=== PATIENT | female | born 1995 | race Caucasian/White ===

== ENCOUNTER 2023-01-04 09:05 | Emergency (ER) | payer BC, SELFPAY ==
--- NOTE | ~2023-01-04 | XR_ITS ---
EXAMINATION: XR hand RT min 3V DATE: 01/04/2023 09:29 INDICATION: Right hand injury and swelling. TECHNIQUE: 3 views of right hand were obtained. COMPARISON: None. FINDINGS: There is a comminuted fracture of neck of fifth metacarpal. The main distal fracture fragme nt demonstrates 40 degrees radiopalmar angulation. Joint spaces are normal. IMPRESSION: 1. Comminuted fracture of neck of fifth metacarpal. Reviewed, dictated and finalized at location A.
[2023-01-04 09:20] VITALS: BP 111/58; PULSE 75; RESP 16; TEMP 36.6; O2SAT 100
--- NOTE | 2023-01-04 09:57 | ED.UPPEXIN ---
HPI - Extremity Injury (Upper) General Chief Complaint: Extremity Injury, Upper Stated Complaint: right hand injury Time Seen by Provider: 01/04/23 09:30 Source: patient Mode of arrival: ambulatory Limitations: no limitations History of Present Illness HPI narrative: Vero is a 27-year-old patient presenting to the clinic today with complaints of right hand injury. She reports she report punched a refrigerator door this morning around 4:00 a.m.. States that she was very stressed and this caused her to punched the refrigerator door. Obvious deformity with swelling noted to the right 5th metacarpal Related Data Allergies Allergy/AdvReac Type Severity Reaction Status Date / Time No Known Allergies Allergy Verified 01/04/23 10:07 Review of Systems Review of Systems: Pertinent positives per HPI. Patient denies any fever, chills, rash, headache, visual changes, dizziness, cough, runny nose, sore throat, shortness of breath, chest pain, palpitations, nausea, vomiting, diarrhea, constipation, abdominal pain, or any urinary issues. [facility] Family History Family History Mother Family history of malignant neoplasm of cervix Other Diabetes mellitus Family history of arthritis Social History Social History Smoking status: Never smoker Alcohol intake: never Comments At the time of my signature, I reviewed and agree with the nursing past medical, surgical, social, and family history. There is no relevant family history pertinent to the patient complaint. Exam Narrative: General: Well-developed, well nourished, in no apparent distress Head: Normocephalic, atraumatic. Cardio: Regular rate and rhythm, s1 and s2 normal, no murmur appreciated. Resp: Clear to auscultation bilaterally, no rhonchi, rales, wheezing or rubs. Musculoskeletal: Step-off deformity, moderate swelling with bruising noted over the right 5th metacarpal, tender to palpation over the right 5th metacarpal, limited range of motion to the right 5th finger due to pain and swelling, 5th finger warm to touch with less than 2 second cap refill, grossly normal range of motion of thumb and 2-4 fingers otherwise, peripheral pulse strong, no cyanosis, normal gait and station Course Course Emergency Course: Portions of this record may have been created with voice recognition software. Level of Care: Express Care Visit Vital Signs Vital signs: Vital Signs Temperature 36.6 C 01/04/23 09:20 Pulse Rate 75 01/04/23 09:20 Respiratory Rate 16 01/04/23 09:20 Blood Pressure 111/58 L 01/04/23 09:20 Pulse Oximetry 100 01/04/23 09:20 Temperature 36.6 C 01/04/23 09:20 Pulse Rate 75 01/04/23 09:20 Respiratory Rate 16 01/04/23 09:20 Blood Pressure 111/58 L 01/04/23 09:20 Pulse Oximetry 100 01/04/23 09:20 Oxygen Delivery Room Air 01/04/23 09:28 Vital signs reviewed MDM - Extremity Injury (Upper) MDM Narrative Medical decision making narrative: At the time of visit patient is resting on the exam table. X-ray of the right hand was performed and shows communited fracture of the neck of the right 5th metacarpal. Ulnar gutter splint and arm sling place. Work note. Contacted Dr. Saldana office and patient will call office to make an appointment. Will send in Rx for [place]/Narcan. Supportive measures discussed with the patient she voiced understanding of the discharge instructions and agrees to treatment plan. Return precautions were also reviewed. Differential Diagnosis Differential diagnosis: Likely fracture of hand and other (Comminuted boxer's fracture, soft tissue swelling, contusion) Discharge Plan Discharge Clinical Impression: Fracture, metacarpal, neck Qualifiers: Encounter type: initial encounter Metacarpal bone: fifth Fracture type: closed Fracture alignment: displaced Laterality: right Quali
== END 2023-01-04 10:20 | disposition home or self-care (01) ==
PROVIDERS: Emergency Provider Nurse Practitioner Family
DX: S62.336A Displaced fracture of neck of fifth metacarpal bone, right hand, initial encounter for closed fracture (principal); W22.09XA Striking against other stationary object, initial encounter
CPT/HCPCS: 73130; 99203; 99204; 99214; A4565; G0463